=== PATIENT | female | born 1965 | race Caucasian/White ===

== ENCOUNTER 2018-07-17 16:54 | Observation (INO) | payer OTHER ==
[2018-07-17 17:40] LABS: ADD MAN DIFF? NO
[2018-07-17 17:45] LABS: BASOPHIL # 0.1 10^3/ul (0.0-0.1); BASOPHILS % 0.6 % (0.0-2.0); EOSINOPHILS # 0.1 10^3/ul (0.0-0.5); EOSINOPHILS % 0.9 % (0.0-7.0); HEMATOCRIT 37.1 % (37.0-47.0); HEMOGLOBIN 12.2 g/dl (12.0-16.0); LYMPHOCYTES # 3.2 10^3/ul (0.8-2.9); LYMPHOCYTES % 38.9 % (15.0-51.0); MEAN CORPUSCULAR HEMOGLOBIN 26.9 pg (29.0-33.0); MEAN CORPUSCULAR HGB CONC 32.9 g/dl (32.0-37.0); MEAN CORPUSCULAR VOLUME 81.9 fl (82.0-101.0); MEAN PLATELET VOLUME 9.2 fl (7.4-10.4); MONOCYTE # 0.5 10^3/ul (0.3-0.9); MONOCYTES % 6.6 % (0.0-11.0); NEUTROPHIL # 4.3 10^3/ul (1.6-7.5); NEUTROPHILS % 52.8 % (39.0-77.0); PLATELET COUNT 278 10^3/UL (140-415); RED BLOOD COUNT 4.53 10^6/ul (4.20-5.40); RED CELL DISTRIBUTION WIDTH 13.8 % (11.5-14.5)
[2018-07-17 17:45] LABS: WHITE BLOOD COUNT 8.1 10^3/ul (4.8-10.8)
[2018-07-17] MEDS: ONDANSETRON 4 MG INJ IV ×2 (17:59→21:51)
[2018-07-17] MEDS: morphine 4 MG/ML VIAL IV ×2 (17:59→21:51)
[2018-07-17 18:09] LABS: ALANINE AMINOTRANSFERASE 25 IU/L (13-69); ALBUMIN 4.3 g/dl (3.3-4.9); ALBUMIN/GLOBULIN RATIO 1.19; ALKALINE PHOSPHATASE 106 IU/L (42-121); ANION GAP 11 (5-13); ASPARTATE AMINO TRANSFERASE 25 IU/L (15-46); BILIRUBIN,INDIRECT 0.3 mg/dl (0-1.1); BILIRUBIN,TOTAL 0.3 mg/dl (0.2-1.3); BLOOD UREA NITROGEN 13 mg/dl (7-20); CARBON DIOXIDE 25 mmol/L (21-31); CHLORIDE 108 mmol/L (97-110); CREATININE 0.68 mg/dl (0.44-1.00); Estimated GFR > 60 mL/min (>60); GLUCOSE 117 mg/dl (70-220); POTASSIUM 3.5 mmol/L (3.5-5.1); SODIUM 144 mmol/L (135-144); TOTAL PROTEIN 7.9 g/dl (6.1-8.1)
[2018-07-17] MEDS: NITROGLYCERIN 2% 1 GM OINT PKT TD (18:10)
[2018-07-17] MEDS: ASPIRIN 325 MG TAB PO (18:10)
[2018-07-17 19:28] LABS: B-TYPE NATRIURETIC PEPTIDE 54 PG/ML (0-125); TROPONIN-I < 0.012 ng/ml (0.000-0.120)
[2018-07-17] MEDS ORDERED: HYDROCODONE/APAP (5/325) TAB PO (22:00)
[2018-07-17] MEDS ORDERED: hydrALAzine 20 MG INJ IV (22:00)
[2018-07-17] MEDS ORDERED: ALBUTEROL/IPRATROPIUM (NEB) 3 ML AMP HHN (22:00)
[2018-07-17] MEDS ORDERED: MAGNESIUM HYDROXIDE 30ML CUP PO (22:00)
[2018-07-17] MEDS ORDERED: LORAZEPAM 2 MG INJ IV (22:00)
[2018-07-17] MEDS ORDERED: DOCUSATE SODIUM 100 MG CAP PO (22:00)
[2018-07-17] MEDS ORDERED: ACETAMINOPHEN 325 MG TAB PO ×2 (22:00)
[2018-07-17] MEDS ORDERED: NACL 0.9% 3 ML SYG IV (22:00)
[2018-07-17] MEDS ORDERED: NITROGLYCERIN (SL) 0.4 MG TAB SL (22:00)
[2018-07-17] MEDS ORDERED: ONDANSETRON 4 MG INJ IV ×2 (22:00)
[2018-07-17 22:31] LABS: CREATINE KINASE 39 IU/L (23-200)
[2018-07-17 22:43] LABS: CK INDEX 0.6; CK-MB < 0.22 ng/ml (0.0-2.4); TROPONIN-I < 0.012 ng/ml (0.000-0.120)
[2018-07-17 22:49] LABS: FREE T4 (FREE THYROXINE) 1.06 ng/dl (0.64-1.79)
[2018-07-17] MEDS: SOD CHLORIDE 0.45% 1,000 ML IV (23:14)
[2018-07-18 05:16] LABS: ADD MAN DIFF? NO
[2018-07-18 05:22] LABS: WHITE BLOOD COUNT 8.2 10^3/ul (4.8-10.8)
[2018-07-18 05:22] LABS: BASOPHIL # 0.1 10^3/ul (0.0-0.1); BASOPHILS % 0.6 % (0.0-2.0); EOSINOPHILS # 0.1 10^3/ul (0.0-0.5); EOSINOPHILS % 1.3 % (0.0-7.0); HEMATOCRIT 33.2 % (37.0-47.0); HEMOGLOBIN 10.6 g/dl (12.0-16.0); LYMPHOCYTES # 3.1 10^3/ul (0.8-2.9); LYMPHOCYTES % 38.3 % (15.0-51.0); MEAN CORPUSCULAR HEMOGLOBIN 26.4 pg (29.0-33.0); MEAN CORPUSCULAR HGB CONC 31.9 g/dl (32.0-37.0); MEAN CORPUSCULAR VOLUME 82.8 fl (82.0-101.0); MEAN PLATELET VOLUME 9.4 fl (7.4-10.4); MONOCYTE # 0.6 10^3/ul (0.3-0.9); MONOCYTES % 6.8 % (0.0-11.0); NEUTROPHIL # 4.3 10^3/ul (1.6-7.5); NEUTROPHILS % 52.6 % (39.0-77.0); PLATELET COUNT 254 10^3/UL (140-415); RED BLOOD COUNT 4.01 10^6/ul (4.20-5.40)
[2018-07-18 05:43] LABS: CREATINE KINASE 33 IU/L (23-200)
[2018-07-18 05:47] LABS: ANION GAP 7 (5-13); BLOOD UREA NITROGEN 11 mg/dl (7-20); CALCIUM 8.7 mg/dl (8.4-10.2); CARBON DIOXIDE 25 mmol/L (21-31); CHLORIDE 108 mmol/L (97-110); CREATININE 0.66 mg/dl (0.44-1.00); Estimated GFR > 60 mL/min (>60); GLUCOSE 92 mg/dl (70-220); MAGNESIUM 2.2 mg/dl (1.7-2.5); PHOSPHORUS 4.2 mg/dl (2.5-4.9); POTASSIUM 3.5 mmol/L (3.5-5.1); SODIUM 140 mmol/L (135-144)
[2018-07-18 05:48] LABS: CHOLESTEROL 173 mg/dl (100-200)
[2018-07-18 05:48] LABS: CHOL/HDL RATIO 4.9 RATIO; HDL CHOLESTEROL 35 mg/dl (37-92); LDL CHOLESTEROL,CALCULATED 83 mg/dl; TRIGLYCERIDES 274 mg/dl (0-149)
[2018-07-18 05:54] LABS: CK INDEX 0.7; CK-MB < 0.22 ng/ml (0.0-2.4); TROPONIN-I < 0.012 ng/ml (0.000-0.120)
[2018-07-18 06:10] LABS: HEMOGLOBIN A1C 5.6 % (0-5.9)
[2018-07-18] MEDS: HEPARIN 5,000 UNIT/1 ML VIAL SC ×2 (09:02→21:17)
[2018-07-18] MEDS: ASPIRIN (EC) 325 MG TAB PO (09:05)
[2018-07-18] MEDS: morphine 2 MG INJ IV (09:13)
[2018-07-18] MEDS: POTASSIUM CHLORIDE (SR) 20 MEQ TAB PO (11:26)
[2018-07-18] MEDS: SOD CHLORIDE 0.45% 1,000 ML IV (11:29)
[2018-07-18 15:06] LABS: TROPONIN-I < 0.012 ng/ml (0.000-0.120)
[2018-07-19] MEDS: SOD CHLORIDE 0.45% 1,000 ML IV (02:02)
[2018-07-19 05:50] LABS: ADD MAN DIFF? NO
[2018-07-19 05:52] LABS: BASOPHILS % 0.6 % (0.0-2.0); EOSINOPHILS # 0.1 10^3/ul (0.0-0.5); HEMOGLOBIN 11.4 g/dl (12.0-16.0); LYMPHOCYTES # 2.6 10^3/ul (0.8-2.9); LYMPHOCYTES % 37.3 % (15.0-51.0); MEAN CORPUSCULAR HGB CONC 31.7 g/dl (32.0-37.0); MEAN PLATELET VOLUME 9.5 fl (7.4-10.4); MONOCYTE # 0.5 10^3/ul (0.3-0.9); MONOCYTES % 7.1 % (0.0-11.0); NEUTROPHIL # 3.8 10^3/ul (1.6-7.5); NEUTROPHILS % 53.6 % (39.0-77.0); PLATELET COUNT 270 10^3/UL (140-415); RED BLOOD COUNT 4.39 10^6/ul (4.20-5.40)
[2018-07-19 05:56] LABS: ANION GAP 8 (5-13); BLOOD UREA NITROGEN 11 mg/dl (7-20); CALCIUM 8.6 mg/dl (8.4-10.2); CARBON DIOXIDE 27 mmol/L (21-31); CHLORIDE 108 mmol/L (97-110); CREATININE 0.75 mg/dl (0.44-1.00); Estimated GFR > 60 mL/min (>60); GLUCOSE 102 mg/dl (70-220); SODIUM 143 mmol/L (135-144)
[2018-07-19] MEDS: ASPIRIN (EC) 325 MG TAB PO (08:04)
[2018-07-19] MEDS: HEPARIN 5,000 UNIT/1 ML VIAL SC (08:06)
[2018-07-19] MEDS: REGADENOSON 0.4 MG/5 ML SYG (10:24)
== END 2018-07-19 15:30 | disposition home or self-care (01) ==
LOC: E/R 16:54 → 6WM 21:31
DX: R07.9 Chest pain, unspecified (principal); E87.6 Hypokalemia; R51 Headache
CPT/HCPCS: 36415; 71045; 78452; 80048; 80053; 80061; 82550; 82553; 83036; 83735; 83880; 84100; 84439; 84443; 84484; 85025; 93005; 93017; 93306; 99285-25; G0378

== ENCOUNTER 2018-09-26 05:58 | Day surgery (SDC) | payer OTHER ==
[~2018-09-26 05:58] MED LIST: CEFAZOLIN 2 GM/50 ML (PMX) 50 ML IVPB
[2018-09-26] MEDS: SOD CHLORIDE 0.9% 1,000 ML IV (06:40)
[2018-09-26] MEDS ORDERED: LIDOCAINE 2% (SDV) 5 ML INJ (07:10)
[2018-09-26] MEDS ORDERED: PROPOFOL 100 ML (07:40)
[2018-09-26] MEDS ORDERED: FENTAnyl 50 MCG/ML VIAL (07:48)
[2018-09-26] MEDS ORDERED: CEFAZOLIN 1 GM INJ (07:48)
[2018-09-26] MEDS ORDERED: DEXAMETHASONE 4 MG/ML 5 ML INJ (07:49)
[2018-09-26] MEDS ORDERED: ONDANSETRON 4 MG INJ (07:49)
[2018-09-26] MEDS: BUPIVACAINE 0.25% (MPF) 30 ML INJ (08:37)
[2018-09-26] MEDS ORDERED: LABETALOL HCL 20MG INJ IV (09:00)
[2018-09-26] MEDS ORDERED: ONDANSETRON 4 MG INJ IV (09:00)
[2018-09-26] MEDS ORDERED: OXYCODONE/ACETAMINOPHEN (5/325) TAB PO ×2 (09:00)
[2018-09-26] MEDS ORDERED: HYDROCODONE/APAP (5/325) TAB PO (09:00)
[2018-09-26] MEDS ORDERED: FENTAnyl 50 MCG/ML VIAL IV ×3 (09:00)
[2018-09-26] MEDS ORDERED: MEPERIDINE 25 MG INJ IV (09:00)
[2018-09-26] MEDS ORDERED: MIDAZOLAM 1 MG/ML 2 ML INJ IV (09:00)
[2018-09-26] MEDS ORDERED: hydrALAzine 20 MG INJ IV (09:00)
[2018-09-26] MEDS ORDERED: EPHEDrine 25 MG/5 ML SYG IV (09:00)
[2018-09-26] MEDS ORDERED: KETOROLAC 30 MG INJ IV (09:00)
[2018-09-26] MEDS ORDERED: ALBUTEROL 0.083% (NEB) 2.5 MG/3 ML AMP HHN (09:00)
[2018-09-26] MEDS ORDERED: DIPHENHYDRAMINE 50 MG INJ IV (09:00)
[2018-09-26] MEDS ORDERED: METOCLOPRAMIDE 10 MG INJ IV (09:00)
== END 2018-09-26 11:15 | disposition home or self-care (01) ==
LOC: SDS 05:58
DX: D17.24 Benign lipomatous neoplasm of skin and subcutaneous tissue of left leg (principal); D17.1 Benign lipomatous neoplasm of skin and subcutaneous tissue of trunk
CPT/HCPCS: 14001; 88307